=== PATIENT | male | born 1990 | race Caucasian/White ===

== ENCOUNTER 2024-12-19 21:31 | Emergency (ER) | payer OTHER, SELFPAY ==
[2024-12-19 21:35] VITALS: BP 163/86
[2024-12-19 21:51] LABS: Hematocrit 40.3 % (39.0-52.0); Hemoglobin 13.9 g/dL (13.0-18.0); Mean Corp Hgb Conc. 34.5 g/dL (33.0-37.0); Mean Corpuscular Volume 82.6 fL (80.0-94.0); Nucleated Red Blood Cells % 0 % (-); Platelet Count 324 10^3/uL (130-400); Red Cell Dist. Width 11.6 % (11.5-14.5)
[2024-12-19 22:03] LABS: ALT (SGPT) 19 U/L (0-50); AST (SGOT) 21 U/L (17-59); Albumin 4.9 g/dl (3.5-5.0); Alkaline Phosphatase 68 U/L (38-126); Blood Urea Nitrogen 15 mg/dl (9-20); Calcium 9.9 mg/dl (8.4-10.2); Carbon Dioxide 25 mmol/L (22-30); Chloride 106 mmol/L (98-107); Glucose 96 mg/dl (70-99); Potassium 4.5 mmol/L (3.5-5.1); Sodium 139 mmol/L (135-145); Total Protein 7.8 g/dl (6.3-8.2); eGFR > 60.00
[2024-12-19 22:57] VITALS: BMI 26.6
[2024-12-19 23:00] VITALS: BP 136/90
--- NOTE | 2024-12-19 23:31 | ED.GENMED ---
History of Present Illness
General
Chief Complaint: Rectal Bleeding
Source: patient
Time Seen by Provider: 12/19/24 23:06
History of Present Illness
History of Present Illness:
Note:
CHIEF COMPLAINT(S)
Bleeding from ruptured mass near rectal area.
HISTORY OF PRESENT ILLNESS
The patient is a 34-year-old male who presented to the emergency room with a chief complaint of bleeding from a ruptured mass near the rectal area. The patient described the onset of symptoms as starting a couple of hours ago. He noted the
appearance of a cyst-like structure on his right side, near the buttocks but not directly at the rectum, which later burst and started bleeding. The patient described the bleeding as significant, causing the napkin he used to become 'as red as an
apple.' The patient applied a cold compress to the area. He also experienced a sensation of straining in the back and genital area but denied abdominal pain. The patient has noticed increased bowel movements between yesterday and today, which he
speculates might be related to pressure on his intestines. Denies any previous history of similar symptoms.
ADDITIONAL HISTORY OBTAINED FROM SOURCES OTHER THAN THE PATIENT
The patient was alone during the examination but mentioned a family members presence in the waiting area.
CHRONIC MEDICAL CONDITIONS SIGNIFICANTLY AFFECTING CARE
The patient denies any chronic medical conditions such as diabetes, hypertension, or high cholesterol.
ALLERGIES
The patient denies any known drug allergies.
MEDICATIONS
The patient denies taking any daily medications.
REVIEW OF SYSTEMS
- Dermatologic: Bleeding from ruptured cyst-like structure near rectum.
- Gastrointestinal: Increased frequency of bowel movements; no abdominal pain.
- Genitourinary: Sensation of strain in the genital region, no trauma reported.
- Hematologic: Reports bleeding described as bright red and presence of clotted blood.
PHYSICAL EXAM
General: Alert, no acute distress.
Skin: Warm, dry. At the 1 o'clock lithotomy position there was a break in the skin with small amount of bloody oozing noted just medial to this area as a hemorrhoid. There is no pustulous drainage. There is no fluctuance. There is no masses.
There is no significant tenderness.
Head: Normocephalic, atraumatic.
Neck: Supple, trachea midline.
Eye, Ears, Nose, Mouth, and Throat: Oral mucosa moist.
Cardiovascular: Normal peripheral perfusion, No edema.
Respiratory: Respirations are non-labored.
Gastrointestinal: Abdomen nondistended.
Back: Normal range of motion, Normal alignment.
Musculoskeletal: Normal ROM, normal strength.
Neurological: Alert and oriented to person, place, time, and situation, No focal neurological deficit observed.
Psychiatric: Cooperative, appropriate mood & affect.
PROBLEM LIST
Acute:
- Ruptured hemorrhoid or perirectal cyst with bleeding.
- Possible minor perianal tear.
PLAN
1. Patient advised to take warm baths to promote blood flow and aid in healing.
2. Recommend keeping the area clean and applying warm compresses as needed.
3. Referral to colorectal surgery for further evaluation and follow-up care to monitor for healing and ruling out fistula formation.
4. Suggested using absorbent material to help manage the drainage and prevent staining of clothing.
5. Explanation provided regarding the natural course of hemorrhoids and cysts, and reassurance given regarding current findings.
DIFFERENTIAL DIAGNOSIS
The Differential Diagnosis includes, in no particular order and is not limited to:
1. Ruptured hemorrhoid
2. Perirectal abscess
3. Anal fissure
4. Perianal hematoma
5. Pilonidal cyst
6. Cystic lesion secondary to infected dermal inclusion cyst
7. Rectal prolapse
8. Fistula in ano
9. Skin tag irritation
10. Crohns disease-related anal lesion
Disposition:
SUMMARY OF ENCOUNTER
The patient, a 34-year-old male, presented to the emergency department due to bleeding from a ruptured mass near the rectal area. Physical examination revealed a ruptured hemorrhoid or perirectal cyst that was open and draining. The patient appeared
well, with no signs of an abscess. Normal lab results showed no acute concerns. Management in the emergency department involved recommending warm rectal soaks to aid healing and suggesting outpatient follow-up with colorectal surgery. No imaging or
antibiotics were deemed necessary at this time.
ASSESSMENT
The patient likely has a ruptured hemorrhoid or perirectal cyst with associated bleeding, consistent with findings on examination. Based on the presentation, less likely differentials include a fistula in ano.
PLAN
1. Advise warm rectal soaks to promote healing.
2. Recommend outpatient follow-up with colorectal surgery for further evaluation and monitoring.
3. Educate the patient on maintaining hygiene in the affected area and monitor for signs of infection.
PATIENT EDUCATION AND COUNSELING
The patient was informed that the ruptured mass near the rectal area is likely a hemorrhoid or cyst, both of which are generally not serious. Emphasis was placed on the importance of warm rectal soaks to aid in the healing process and the necessity
of follow-up with a colorectal surgeon to ensure proper management and rule out other conditions such as a fistula.
MEDICATION RECONCILIATION
No medications were administered or prescribed during this visit.
MEDICAL DECISION MAKING
- Number and Complexity of Problems Addressed:
- Ruptured hemorrhoid or perirectal cyst.
- Differential Diagnosis: Ruptured hemorrhoid, perirectal abscess, anal fissure, perianal hematoma, pilonidal cyst, cystic lesion secondary to infected dermal inclusion cyst, rectal prolapse, fistula in ano, skin tag irritation, Crohns
disease-related anal lesion.
- Data:
Category 1:
- Labs reviewed showed normal white cell count, normal hemoglobin, and normal chemistries.
Category 2:
- Additional history obtained from family waiting outside was acknowledged but not directly involved in decision making.
- Risk:
- Consideration of Admission/Observation was discussed, but the patient was deemed safe for outpatient management with discharge education and follow-up instructions.
DIAGNOSIS
1. Ruptured hemorrhoid (ICD-10: K64.8)
2. Perirectal cyst (ICD-10: K61.1)
3. Possible minor perianal tear (ICD-10: K60.2)
Phy Exam
Physical Exam
Physical Exam:
.
Course
Orders/Labs/Results
Orders:
Orders
12/19/24 21:42
CMP [Comprehensive Metabolic Panel] Urgent
Complete Blood Count/With Diff Urgent
Abnormal Lab Results
12/19/24
21:42
Total Bilirubin 2.1 H mg/dl
(0.2-1.3)
12/19/24 21:42
12/19/24 21:42
Vital Signs
Initial and Last Documented VS:
Initial Vital Signs
Temp Pulse Resp BP Pulse Ox
98.5 F 85 18 163/86 96
12/19/24 21:35 12/19/24 21:35 12/19/24 21:35 12/19/24 21:35 12/19/24 21:35
Last Documented Vital Signs
Temp Pulse Resp BP Pulse Ox
98.5 F 73 18 136/90 98
12/19/24 21:35 12/19/24 23:00 12/19/24 23:00 12/19/24 23:00 12/19/24 23:36
*Pulse Oximetry
SaO2: 98
Oxygen Mode of Delivery: Room air
Patient hypoxic: no
*Critical Care Note
Total Time (30-74mins, 75-104mins- exclusive of procedures): Not Applicable
ED Attending Note
-
Portions of this chart may have been created with voice recognition software.� Occasional wrong word or��sound alike� substitutions may have occurred due to the inherent limitations of voice recognition software.
Discharge Plan
Departure
Patient Disposition: Home (Routine Discharge)
Date of Disposition: 12/19/24
Time of Disposition: 23:32
Patient with high blood pressure during this ER visit?: Yes
Discharge Problem:
Rectal bleeding, Hemorrhoid
Instructions: Hemorrhoids (DC), BLOOD PRESSURE
Referrals:
Peter Cruz MD [Active, ColoRectal]
Activity Restrictions/Additional Instructions:
Please use warm soaks as discussed. Please see colorectal surgery in the next 2 weeks for follow-up and reevaluation and further workup if any symptoms persist. Return immediately for rectal pain, fevers, pustulous drainage or any other concerns.
Interventions
Interventions:
*Risk Screen - Suicide Last Done: 12/19/24 21:35
*General Assessment Last Done: 12/19/24 22:58
*Neglect/Abuse Screening Last Done: 12/19/24 21:35
*ED- Fall Risk Assessment Last Done: 12/19/24 22:58
*ED COVID-19 Vaccine History Last Done: 12/19/24 22:58
*Nursing Disposition Last Done: 12/19/24 23:44
ML-Anudlt-Zfvzfbhfme Assessment Last Done: 12/19/24 23:05
ED- Cardiac Assessment Last Done: 12/19/24 23:05
ED- Pulmonary Assessment Last Done: 12/19/24 23:05
Discharge Date and Time
Discharge Date/Time: 12/19/24 23:44
Print Language: SETSWANA
== END 2024-12-19 23:44 | disposition home or self-care (01) ==
LOC: EMR 21:31
PROVIDERS: EMERGENCY PHYSICIAN Emergency Medicine; FAMILY PHYSICIAN Family Medicine
DX: K62.5 Hemorrhage of anus and rectum (principal); K64.9 Unspecified hemorrhoids
CPT/HCPCS: 99283; 80053; 85025